=== PATIENT | male | born 1995 | race Caucasian/White ===

== ENCOUNTER 2017-12-17 21:14 | Emergency (ER) | payer MEDICAID | END 2017-12-18 00:18 | disposition home or self-care (01) | LOC: D.ER 21:14 | DX: R21 Rash and other nonspecific skin eruption (principal); J11.1 Influenza due to unidentified influenza virus with other respiratory manifestations; Z94.7 Corneal transplant status ==

== ENCOUNTER 2018-01-23 00:42 | Emergency (ER) | payer MEDICAID | END 2018-01-23 02:08 | disposition home or self-care (01) | LOC: D.ER 00:42 | DX: S90.121A Contusion of right lesser toe(s) without damage to nail, initial encounter (principal); W22.8XXA Striking against or struck by other objects, initial encounter; Y93.89 Activity, other specified; Y92.219 Unspecified school as the place of occurrence of the external cause; Z94.7 Corneal transplant status ==

== ENCOUNTER 2018-12-17 19:17 | Emergency (ER) | payer MEDICAID ==
[~2018-12-17] VITALS: Ht 170.2 cm; Wt 88.2 kg
[2018-12-17 19:22] VITALS: Ht 170.2 cm; Wt 88.2 kg
[2018-12-17] MEDS ORDERED: HYDROCHLOROTHIA50 MG PO (19:24)
[2018-12-17] MEDS ORDERED: SYNTHROID50 MCG PO (19:24)
[2018-12-17 20:21] LABS: APPEARANCE CLEAR (CLEAR); BILIRUBIN NEGATIVE (NEGATIVE); COLOR STRAW (YELLOW); GLUCOSE NEGATIVE (NEGATIVE); KETONE NEGATIVE (NEGATIVE); NITRITE NEGATIVE (NEGATIVE); PROTEIN NEGATIVE (NEGATIVE); UROBILINOGEN NORMAL (NORMAL)
[2018-12-17 20:22] LABS: BASOPHILS 0.4 % (0-2); EOSINOPHILS 1.7 % (0-7); HEMATOCRIT 39.1 % (42.0-54.0); HEMOGLOBIN 12.3 g/dL (13.5-17.5); IMMATURE GRANULOCYTES 0.2 % (0-5); LYMPHOCYTES 49.9 % (15-50); MCH 27.2 pg (26.0-34.0); MCHC 31.5 g/dL (31.0-37.0); MCV 86.5 fL (80.0-100.0); NEUTROPHILS 38.8 % (40-80); PLATELET COUNT 193 10x3/uL (130-400); RBC 4.52 10x6/uL (4.20-6.10); RDW 13.7 % (11.5-14.5); WBC 4.8 10x3/uL (4.8-10.8)
[2018-12-17 20:40] LABS: ALBUMIN 3.5 g/dL (3.4-5.0); ALKALINE PHOSPHATASE 94 U/L (46-116); ALT (SGPT) 22 U/L (10-68); AMYLASE - SERUM 26 U/L (25-115); BILIRUBIN - TOTAL 0.15 mg/dL (0.2-1.3); CALC OSMOLALITY 279 mosm/kg (275-300); CALCIUM 8.3 mg/dL (8.5-10.1); CARBON DIOXIDE 26.9 mmol/L (21.0-32.0); CHLORIDE - SERUM 101 mmol/L (98-107); GLUCOSE 118 mg/dL (74-106); LIPASE 203 U/L (73-393); POTASSIUM - SERUM 3.8 mmol/L (3.5-5.1); PROTEIN - SERUM 8.3 g/dL (6.4-8.2); SODIUM 139 mmol/L (136-145); TROPONIN-I < 0.017 ng/mL (0.000-0.060); UREA NITROGEN 15 mg/dL (7-18); eGFR NON AFRICAN AMERICAN > 90 mL/min (90-120)
[2018-12-17] MEDS ORDERED: BENTYL 20 MG TA20 MG PO (21:15)
[2018-12-17] MEDS ORDERED: ZOFRAN ODT4 MG/UDTAB PO (21:15)
[2018-12-17 22:12] VITALS: BP 128/67
== END 2018-12-17 22:12 | disposition home or self-care (01) ==
LOC: D.ER 19:17
PROVIDERS: Family Medicine
DX: A08.4 Viral intestinal infection, unspecified (principal); R11.2 Nausea with vomiting, unspecified; R53.1 Weakness; I10 Essential (primary) hypertension